=== PATIENT | male | born 1960 | race Caucasian/White ===

== ENCOUNTER 2020-02-13 11:25 | Emergency (ER) | payer OTHER, MEDICAID, SELFPAY ==
[2020-02-13] VITALS (9 sets, daily range): BP systolic 126–166; BP diastolic 58–90; PULSE 85–102; RESP 16; TEMP 36.9; O2SAT 92–94; BMI 26.7
--- NOTE | 2020-02-13 11:39 | ED_ITS ---
HPI - Alcohol <MEGHAN Stovall - Last Filed: 02/14/20 00:17> General Chief Complaint: Toxicology Problem Stated Complaint: etoh Time Seen by Provider: 02/13/20 11:26 Source: patient Mode of arrival: EMS Limitations: no limitations History of Present Illness HPI narrative: This is a 59-year-old male, smoker, who has chronic medical condition as high blood pressure and alcohol dependency presents to ED with medics with chief complain of I have alcohol poisoning and since he drinks way too much all my life. He reports he wants help to quit drinking. He drinks average 14-16 beers now and had attempted several times on his own to quit drinking alcohol but each time failed. Patient denies history of alcohol delirium tremens. Patient reports last drink was at 7:00 a.m. (5 hrs ago) and had 6 packs of beer. Patient reports has not been eating for days and lives in a local motel and states he is homeless. Patient denies recent travel or known exposure to Covid 19. This time he would like to quit for health concerns. Patient takes lisinopril 40 mg but is not sure when he had taken last time. He smokes 1 pack per day all his life and does not elaborate exact duration. He denies using illicit drugs. Patient's primary care doctor is [facility] in [place]. Patient came to [facility] to work at [employer] but quit working. Patient denies suicidal or homicidal ideation, suicidal attempts. He reports he may have been diagnosed depression. Related Data Home Medications Medication Instructions Recorded Confirmed lisinopril 40 mg PO DAILY 02/13/20 02/13/20 Previous Rx's Medication Instructions Recorded lorazepam [Ativan] See Rx Instructions .ROUTE 02/13/20 .COMPLEX 4 Days #19 tab Allergies Allergy/AdvReac Type Severity Reaction Status Date / Time No Known Drug Allergies Allergy Verified 02/13/20 12:06 Review of Systems <MEGHAN Stovall - Last Filed: 02/14/20 00:17> Review of Systems Narrative: General: Denies fever, chills, fatigue, malaise, sweats. HEENT: Denies sinus pain, ear pain, sore throat, difficulty swallowing, dizziness. Respiratory: Denies dyspnea, cough, wheezing, hemoptysis, sputum. Cardiovascular: Denies chest pain, palpitations, orthopnea, edema. Gastrointestinal: Denies nausea, vomiting, abdominal pain, diarrhea, constipation, melena. : Denies dysuria, frequency, incontinence, hematuria, urinary retention. Musculoskeletal: Denies weakness, joint pain or bony pain. Skin: Denies rash, skin lesions, or other. Neurologic: Denies weakness, headache, numbness, change in speech, confusion, seizures, incoordination. Psychiatric: see HPI 12-point review of systems is negative except for those stated above. Patient History <MEGHAN Stovall - Last Filed: 02/14/20 00:17> Surgical History (Updated 02/13/20 @ 11:47 by MEGHAN Stovall) No pertinent past surgical history (Acute) Social History Smoking Status: Current every day smoker Exam <MEGHAN Stovall - Last Filed: 02/14/20 00:17> Narrative Exam Narrative: GEN: oriented x 3, appears to be intoxicated and difficult time keeping eyes open. Head: Normal cephalic, atraumatic. No scalp or temporal tenderness, palpable mass or rash. EYES: Pupils are equal, round, and reactive to light and accommodation. Extraocular muscles are intact bilaterally. There is no subconjunctival hemorrhage, exudate and sclera non-icteric. ENT: Hearing grossly intact. Nose without bleeding, purulent discharge or deviation. Airway patent. Neck: Trachea in midline. No JVD, non-tender without lymphadenopathy. No masses or thyroid megaly. Supple, non-tender and no meningeal signs. CARDIAC: Normal regular rate and rhythm without murmurs, gallops, or rubs. No chest wall tenderness. No peripheral edema, cyanosis or pallor. Capillary refill is less than 2 seconds. RESPIRATORY: Lungs are clear to auscultate bilaterally. No cough, wheezes, rales, or rhonchi. No stridor, respiratory distress, increase work of breathing, or accessary muscle used. ABD: Abdomen soft, nontender and non-distended. No guarding or rebound tenderness to palpate. Bowel sounds are normal in all 4 quadrants. There is no palpable masses or organomegaly. EXT: Full painless ROM of all extremities with no loss of sensation, strength, effusion or edema. SKIN: Old dry scabs on forehead and nasal bridge from fall. Warm, dry, normal color for patient. No erythema, lesions or rash over visible areas. BACK: Nontender without deformity or crepitance. No flank tenderness. NEUROLOGICAL: Appears to be sleepy but able to follow verbal command and easily arousable. Oriented to place, time and person. Sensation and motor function intact bilaterally. No facial droops, dysphasia. Initial Vital Signs Initial Vital Signs: Vital Signs Pulse Rate 102 H 02/13/20 11:28 Blood Pressure 166/90 H 02/13/20 11:28 Pulse Oximetry 94 02/13/20 11:28 Psych Appearance: disheveled Mental Status: mental status grossly normal Speech and Movement: speech and movement normal Mood: dysthymic mood Affect: other (Flat) Attitude: cooperative Thought Process: normal Thought Content: normal Judgment: judgment good <Charly Michael MD - Last Filed: 02/14/20 09:48> Initial Vital Signs Initial Vital Signs: Vital Signs Pulse Rate 102 H 02/13/20 11:28 Blood Pressure 166/90 H 02/13/20 11:28 Pulse Oximetry 94 02/13/20 11:28 Scores <MEGHAN Stovall - Last Filed: 02/14/20 00:17> ABCD2 Citation: Initial CIWA 0 Course <MEGHAN Stovall - Last Filed: 02/14/20 00:17> Orders Ordered: Discontinued Medications Magnesium Sulfate 2 gm/ Folic Acid 1 mg/ Thiamine HCl 100 mg / Multivitamins 10 ml/ Sodium Chloride 1,015.2 mls @ 125 mls/hr IV NOW ONE Stop: 02/13/20 19:42 Last Infusion: 02/13/20 17:52 Dose: 0 mls/hr Documented by: Admin: 02/13/20 12:07 Dose: 125 mls/hr Documented by: CARMEN Lisinopril (Zestril) 40 mg PO NOW ONE Stop: 02/13/20 12:35 Last Admin: 02/13/20 12:58 Dose: 40 mg Documented by: CASSIE Lorazepam (Ativan) 1 mg PO NOW ONE Stop: 02/13/20 17:57 Last Admin: 02/13/20 18:15 Dose: 1 mg Documented by: CASSIE Nicotine (Nicoderm) 21 mg TOP NOW ONE Stop: 02/13/20 12:35 Last Admin: 02/13/20 12:59 Dose: 21 mg Documented by: CASSIE Nicotine (Nicoderm) 21 mg TOP NOW ONE Stop: 02/13/20 18:47 Vital Signs Vital signs: Vital Signs - 8 hr 02/13/20 18:30 Pulse Rate 92 H Blood Pressure 126/58 L Pulse Oximetry 94 <Charly Michael MD - Last Filed: 02/14/20 09:48> Orders Ordered: Discontinued Medications Magnesium Sulfate 2 gm/ Folic Acid 1 mg/ Thiamine HCl 100 mg / Multivitamins 10 ml/ Sodium Chloride 1,015.2 mls @ 125 mls/hr IV NOW ONE Stop: 02/13/20 19:42 Last Infusion: 02/13/20 17:52 Dose: 0 mls/hr Documented by: Admin: 02/13/20 12:07 Dose: 125 mls/hr Documented by: CARMEN Lisinopril (Zestril) 40 mg PO NOW ONE Stop: 02/13/20 12:35 Last Admin: 02/13/20 12:58 Dose: 40 mg Documented by: CASSIE Lorazepam (Ativan) 1 mg PO NOW ONE Stop: 02/13/20 17:57 Last Admin: 02/13/20 18:15 Dose: 1 mg Documented by: CASSIE Nicotine (Nicoderm) 21 mg TOP NOW ONE Stop: 02/13/20 12:35 Last Admin: 02/13/20 12:59 Dose: 21 mg Documented by: CASSIE Nicotine (Nicoderm) 21 mg TOP NOW ONE Stop: 02/13/20 18:47 Vital Signs Vital signs: Vital Signs - 8 hr 02/13/20 18:30 Pulse Rate 92 H Blood Pressure 126/58 L Pulse Oximetry 94 MDM - Alcohol <MEGHAN Stovall - Last Filed: 02/14/20 00:17> Differential Diagnosis Differential diagnosis: Likely alcohol intoxication and other (Alcohol dependency) Medical Records Attestation: I reviewed the patient's medical records. Lab Data Attestation: I reviewed the patient's lab results. Result diagrams: 02/13/20 11:38 02/13/20 11:38 Labs: Lab Results 02/13/20 02/13/20 02/13/20 Range/Units 11:38 11:38 11:38 WBC 9.0 (4.5-11.0) X10^3/uL RBC 4.81 (4.5-5.9) X10^6/uL Hgb 15.8 (13.5-17.5) g/dL Hct 45.5 (41-53) % MCV 94.5 (80-100) fL MCH 32.9 (26-34) PG MCHC 34.9 (30-36) % RDW 14.5 (11.6-14.8) % Plt Count 210 (150-400) X10^3/uL Neut % (Auto) 46.3 L (50-75) % Lymph % (Auto) 44.5 H (25-40) % [place] % (Auto) 7.7 (3-14) % Eos % (Auto) 0.5 L (2-4) % Baso % (Auto) 1.0 (0-2) % Neut # (Auto) 4200 (5878-8219) /uL Lymph # (Auto) 4000 (5732-8844) /uL [place] # (Auto) 700 (0-900) /uL Eos # (Auto) 0 (0-450) /uL Baso # (Auto) 100 (0-100) /uL PT 11.5 (10.1-12.7) SECONDS INR 1.0 (0.9-1.3) Sodium 143 (137-145) mmol/L Potassium 4.5 (3.4-5.1) mmol/L Chloride 106 (98-107) mmol/L Carbon Dioxide 28 (22-32) mmol/L BUN 7 L (9-20) mg/dL Creatinine 0.54 L (0.66-1.25) mg/dL Estimated GFR > 60.0 (>60) mL/min BUN/Creatinine Ratio 13.0 (6-22) Glucose 121 H (80-110) mg/dL Calcium 9.0 (8.4-10.2) mg/dL Magnesium 2.3 (1.6-2.3) mg/dL Total Bilirubin 0.5 (0.2-1.3) mg/dL Conjugated Bilirubin 0.0 (0.0-0.3) md/dL Unconjugated Bilirubin 0.4 (0.0-1.1) mg/dL AST 67 H (17-59) IU/L ALT 70 H (<50) IU/L Alkaline Phosphatase 90 (38-126) U/L Total Protein 7.8 (6.3-8.2) g/dL Albumin 4.8 (3.5-5.0) g/dL Globulin 3.0 (1.7-4.1) g/dL Albumin/Globulin Ratio 1.6 (1.0-2.8) Lipase 255 (23-300) U/L U Opiates 300ng/mL cut (Negative) Ur Oxycodone Screen (Negative) Urine Methadone Screen (Negative) Ur Barbiturates Screen (Negative) U Tricyclic Antidepress (Negative) Ur Phencyclidine Scrn (Negative) Ur Amphetamines Screen (Negative) U Methamphetamines Scrn (Negative) Ur MDMA Scrn (Ecstasy) (Negative) U Benzodiazepines Scrn (Negative) Urine Cocaine Screen (Negative) U Marijuana (THC) Screen (Negative) Ethyl Alcohol 358 H ( - 10) mg/dL COVID-19 PCR (Negative) 02/13/20 02/13/20 Range/Units 12:30 13:05 WBC (4.5-11.0) X10^3/uL RBC (4.5-5.9) X10^6/uL Hgb (13.5-17.5) g/dL Hct (41-53) % MCV (80-100) fL MCH (26-34) PG MCHC (30-36) % RDW (11.6-14.8) % Plt Count (150-400) X10^3/uL Neut % (Auto) (50-75) % Lymph % (Auto) (25-40) % Vermilion % (Auto) (3-14) % Eos % (Auto) (2-4) % Baso % (Auto) (0-2) % Neut # (Auto) (3640-6268) /uL Lymph # (Auto) (4071-1891) /uL Vermilion # (Auto) (0-900) /uL Eos # (Auto) (0-450) /uL Baso # (Auto) (0-100) /uL PT (10.1-12.7) SECONDS INR (0.9-1.3) Sodium (137-145) mmol/L Potassium (3.4-5.1) mmol/L Chloride (98-107) mmol/L Carbon Dioxide (22-32) mmol/L BUN (9-20) mg/dL Creatinine (0.66-1.25) mg/dL Estimated GFR (>60) mL/min BUN/Creatinine Ratio (6-22) Glucose (80-110) mg/dL Calcium (8.4-10.2) mg/dL Magnesium (1.6-2.3) mg/dL Total Bilirubin (0.2-1.3) mg/dL Conjugated Bilirubin (0.0-0.3) md/dL Unconjugated Bilirubin (0.0-1.1) mg/dL AST (17-59) IU/L ALT (<50) IU/L Alkaline Phosphatase (38-126) U/L Total Protein (6.3-8.2) g/dL Albumin (3.5-5.0) g/dL Globulin (1.7-4.1) g/dL Albumin/Globulin Ratio (1.0-2.8) Lipase (23-300) U/L U Opiates 300ng/mL cut Negative (Negative) Ur Oxycodone Screen Negative (Negative) Urine Methadone Screen Negative (Negative) Ur Barbiturates Screen Negative (Negative) U Tricyclic Antidepress Negative (Negative) Ur Phencyclidine Scrn Negative (Negative) Ur Amphetamines Screen Negative (Negative) U Methamphetamines Scrn Negative (Negative) Ur MDMA Scrn (Ecstasy) Negative (Negative) U Benzodiazepines Scrn Negative (Negative) Urine Cocaine Screen Negative (Negative) U Marijuana (THC) Screen Negative (Negative) Ethyl Alcohol ( - 10) mg/dL COVID-19 PCR Negative (Negative) Point of Care Testing Glucose POC 105 Urine Dip Bedside Urine Glucose Negative Bedside Urine Bilirubin - Negative Bedside Urine Ketone - Negative Urine Specific [place] 1.015 Bedside Urine Occult Blood - Negative Bedside Urine pH 6.0 Bedside Urine Protein - Negative Bedside Urine Urobilinogen - Negative Bedside Urine Nitrite - Negative Bedside Urine Leukocytes - Negative Esterase MDM Narrative Medical decision making narrative: This is a 59-year-old male who has long history of heavy alcohol use all his life presents to ED with in request for alcohol detox in the hospital treatment and help. Patient self self attempted alcohol cessation in the past which failed each time. Patient is motivated this time to quit drinking alcohol for his health. BAL initial is 358 at 1140 after he had about 6 pack of beer at 7:00 a.m.. Otherwise CBC is unremarkable. CMP is unremarkable with normal kidney function. Slightly elevated liver function test of AST and ALT of 67/70. UDS was negative. COVID-19 test was negative. Initiated CIWA test Q4 hrs with seizure precaution. Patient was provided with his routine hypertension medication lisinopril 40 mg and nicotine patch. Patient has been hydrated gentle early with banana bag. 1200-ADMINISTRATOR PESTICIDE consult was initiated and Jennifer was able to evaluate the patient at bedside. At this time it would be best patient has inpatient alcohol treatment medically to prevent alcohol DT since patient has a history of long and heavy alcohol intake. At this time, patient does not have history of DT, suicidal or homicidal ideation. 1750- CIWA 2. Patient walking around in the room and reports feeling little anxious about getting a place at a facility. (+1 for mild anxiety and +1 tremor). The patient is being discharged to [facility] detox facility with prescription of Ativan to help with withdrawal symptoms. Return precautions discussed with patient and patient is waiting for a ride. 184-The [facility] detox facility call back to inform their pharmacy is closed is unable to receive patient and requesting old patient till tomorrow morning. Discussed this with patient and the patient is willing to stay. Nocotine patch was reordered after told unable to leave ED for smoking. 1849-The patient eloped. <Charly Michael MD - Last Filed: 02/14/20 09:48> Lab Data Labs: Lab Results 02/13/20 02/13/20 02/13/20 Range/Units 11:38 11:38 11:38 WBC 9.0 (4.5-11.0) X10^3/uL RBC 4.81 (4.5-5.9) X10^6/uL Hgb 15.8 (13.5-17.5) g/dL Hct 45.5 (41-53) % MCV 94.5 (80-100) fL MCH 32.9 (26-34) PG MCHC 34.9 (30-36) % RDW 14.5 (11.6-14.8) % Plt Count 210 (150-400) X10^3/uL Neut % (Auto) 46.3 L (50-75) % Lymph % (Auto) 44.5 H (25-40) % Verm[place] % (Auto) 7.7 (3-14) % Eos % (Auto) 0.5 L (2-4) % Baso % (Auto) 1.0 (0-2) % Neut # (Auto) 4200 (1202-3517) /uL Lymph # (Auto) 4000 (5041-2645) /uL [place] # (Auto) 700 (0-900) /uL Eos # (Auto) 0 (0-450) /uL Baso # (Auto) 100 (0-100) /uL PT 11.5 (10.1-12.7) SECONDS INR 1.0 (0.9-1.3) Sodium 143 (137-145) mmol/L Potassium 4.5 (3.4-5.1) mmol/L Chloride 106 (98-107) mmol/L Carbon Dioxide 28 (22-32) mmol/L BUN 7 L (9-20) mg/dL Creatinine 0.54 L (0.66-1.25) mg/dL Estimated GFR > 60.0 (>60) mL/min BUN/Creatinine Ratio 13.0 (6-22) Glucose 121 H (80-110) mg/dL Calcium 9.0 (8.4-10.2) mg/dL Magnesium 2.3 (1.6-2.3) mg/dL Total Bilirubin 0.5 (0.2-1.3) mg/dL Conjugated Bilirubin 0.0 (0.0-0.3) md/dL Unconjugated Bilirubin 0.4 (0.0-1.1) mg/dL AST 67 H (17-59) IU/L ALT 70 H (<50) IU/L Alkaline Phosphatase 90 (38-126) U/L Total Protein 7.8 (6.3-8.2) g/dL Albumin 4.8 (3.5-5.0) g/dL Globulin 3.0 (1.7-4.1) g/dL Albumin/Globulin Ratio 1.6 (1.0-2.8) Lipase 255 (23-300) U/L U Opiates 300ng/mL cut (Negative) Ur Oxycodone Screen (Negative) Urine Methadone Screen (Negative) Ur Barbiturates Screen (Negative) U Tricyclic Antidepress (Negative) Ur Phencyclidine Scrn (Negative) Ur Amphetamines Screen (Negative) U Methamphetamines Scrn (Negative) Ur MDMA Scrn (Ecstasy) (Negative) U Benzodiazepines Scrn (Negative) Urine Cocaine Screen (Negative) U Marijuana (THC) Screen (Negative) Ethyl Alcohol 358 H ( - 10) mg/dL COVID-19 PCR (Negative) 02/13/20 02/13/20 Range/Units 12:30 13:05 WBC (4.5-11.0) X10^3/uL RBC (4.5-5.9) X10^6/uL Hgb (13.5-17.5) g/dL Hct (41-53) % MCV (80-100) fL MCH (26-34) PG MCHC (30-36) % RDW (11.6-14.8) % Plt Count (150-400) X10^3/uL Neut % (Auto) (50-75) % Lymph % (Auto) (25-40) % Vermilion % (Auto) (3-14) % Eos % (Auto) (2-4) % Baso % (Auto) (0-2) % Neut # (Auto) (3552-1831) /uL Lymph # (Auto) (1970-2487) /uL Vermilion # (Auto) (0-900) /uL Eos # (Auto) (0-450) /uL Baso # (Auto) (0-100) /uL PT (10.1-12.7) SECONDS INR (0.9-1.3) Sodium (137-145) mmol/L Potassium (3.4-5.1) mmol/L Chloride (98-107) mmol/L Carbon Dioxide (22-32) mmol/L BUN (9-20) mg/dL Creatinine (0.66-1.25) mg/dL Estimated GFR (>60) mL/min BUN/Creatinine Ratio (6-22) Glucose (80-110) mg/dL Calcium (8.4-10.2) mg/dL Magnesium (1.6-2.3) mg/dL Total Bilirubin (0.2-1.3) mg/dL Conjugated Bilirubin (0.0-0.3) md/dL Unconjugated Bilirubin (0.0-1.1) mg/dL AST (17-59) IU/L ALT (<50) IU/L Alkaline Phosphatase (38-126) U/L Total Protein (6.3-8.2) g/dL Albumin (3.5-5.0) g/dL Globulin (1.7-4.1) g/dL Albumin/Globulin Ratio (1.0-2.8) Lipase (23-300) U/L U Opiates 300ng/mL cut Negative (Negative) Ur Oxycodone Screen Negative (Negative) Urine Methadone Screen Negative (Negative) Ur Barbiturates Screen Negative (Negative) U Tricyclic Antidepress Negative (Negative) Ur Phencyclidine Scrn Negative (Negative) Ur Amphetamines Screen Negative (Negative) U Methamphetamines Scrn Negative (Negative) Ur MDMA Scrn (Ecstasy) Negative (Negative) U Benzodiazepines Scrn Negative (Negative) Urine Cocaine Screen Negative (Negative) U Marijuana (THC) Screen Negative (Negative) Ethyl Alcohol ( - 10) mg/dL COVID-19 PCR Negative (Negative) Point of Care Testing Glucose POC 105 Urine Dip Bedside Urine Glucose Negative Bedside Urine Bilirubin - Negative Bedside Urine Ketone - Negative Urine Specific [place] 1.015 Bedside Urine Occult Blood - Negative Bedside Urine pH 6.0 Bedside Urine Protein - Negative Bedside Urine Urobilinogen - Negative Bedside Urine Nitrite - Negative Bedside Urine Leukocytes - Negative Esterase Discharge Plan Departure Patient Disposition: Released, Other Clinical Impression: Alcohol abuse Alcohol dependence Qualifiers: Substance use status: with intoxication Complication of substance-induced condition: uncomplicated Qualified Code(s): F10.220 - Alcohol dependence with intoxication, uncomplicated Discharge Date/Time: 02/13/20 18:45 Instructions: DI for Alcohol Use Disorder Activity Restrictions/Additional Instructions: You have been diagnosed with [alcohol abuse and dependency.]. What to do: *Take your medications as directed. Please take Ativan as prescribed to help with the withdrawal symptoms during detox. *Follow up with your primary care provider in 2-3 days, call for an appointment. Let them know you were seen in the ED and that we asked you to be seen in follow up. *Return to ED if you have any new, worsening, or concerning symptoms, such as [chest pain, breathing difficulty, unable to tolerate fluids, fever or any acute concerns]. Prescriptions: New lorazepam [Ativan] 2 mg tablet See Rx Instructions .ROUTE .COMPLEX 4 Days Qty: 19 RF: 0 No Action lisinopril 40 mg Tablet 40 mg PO DAILY RF: 0 Referrals: [facility] [Outside]
[2020-02-13 11:48] LABS: Add Manual Diff / Slide Review NO; Basophils Absolute Auto 100 /uL (0-100); Eosinophils Absolute Auto 0 /uL (0-450); Eosinophils Percent Auto 0.5 % (2-4); Hematocrit 45.5 % (41-53); Hemoglobin 15.8 g/dL (13.5-17.5); Lymphocytes Absolute Auto 4000 /uL (1100-4500); Lymphocytes Percent Auto 44.5 % (25-40); Mean Corpuscular HGB Conc 34.9 % (30-36); Mean Corpuscular Hemoglobin 32.9 PG (26-34); Mean Corpuscular Volume 94.5 fL (80-100); Monocytes Absolute Auto 700 /uL (0-900); Monocytes Percent Auto 7.7 % (3-14); Neutrophils Absolute Auto 4200 /uL (1500-7000); Neutrophils Percent Auto 46.3 % (50-75); Platelet Count 210 X10^3/uL (150-400); Red Blood Cell Count 4.81 X10^6/uL (4.5-5.9); Red Cell Distribution Width 14.5 % (11.6-14.8)
[2020-02-13 11:54] LABS: Prothrombin Time 11.5 SECONDS (10.1-12.7)
[2020-02-13 11:59] LABS: Alanine Aminotransferase 70 IU/L (<50); Albumin 4.8 g/dL (3.5-5.0); Albumin Globulin Ratio 1.6 (1.0-2.8); Alkaline Phosphatase 90 U/L (38-126); Aspartate Aminotransferase 67 IU/L (17-59); Bilirubin Total 0.5 mg/dL (0.2-1.3); Bilirubin Unconjugated 0.4 mg/dL (0.0-1.1); Blood Urea Nitrogen 7 mg/dL (9-20); Carbon Dioxide 28 mmol/L (22-32); Chloride 106 mmol/L (98-107); Estimated Glomerular Filt Rate > 60.0 mL/min (>60); Glucose 121 mg/dL (80-110); HEMOLYSIS 26 (0-50); Lipase 255 U/L (23-300); Magnesium 2.3 mg/dL (1.6-2.3); Potassium 4.5 mmol/L (3.4-5.1); Sodium 143 mmol/L (137-145); Total Protein 7.8 g/dL (6.3-8.2)
[2020-02-13 12:07] LABS: Ethanol (ETOH) 358 mg/dL
[2020-02-13] MEDS: MAGNESIUM SULFATE 2 GM, FOLIC ACID 1 MG, THIAMINE 100 MG, MULTIVITAMIN 10 ML in SODIUM ... IV (12:07)
[2020-02-13 12:36] LABS: Ur Creatinine Normal (Normal); Ur Specific Gravity Normal (Normal); Urine pH Normal (Normal)
[2020-02-13 12:39] LABS: UR Morphine/Opiate cutoff 300 Negative (Negative); Urine Cocaine Negative (Negative); Urine Tetrahydrocannabinol Negative (Negative)
[2020-02-13 12:40] LABS: Urine Amphetamines Negative (Negative); Urine Barbiturates Negative (Negative); Urine Benzodiazepines Negative (Negative); Urine MDMA Negative (Negative); Urine Methadone Negative (Negative); Urine Methamphetamines Negative (Negative); Urine Oxycodone Negative (Negative); Urine Phencyclidine Negative (Negative); Urine Tricyclic Antidepressant Negative (Negative)
[2020-02-13] MEDS: lisinopriL 20 MG TABLET 40 MG PO (12:58)
[2020-02-13] MEDS: NICOTINE 21 MG PATCH TOP (12:59)
[2020-02-13 14:09] LABS: COVID19 -Nasal RAPID Negative (Negative)
--- NOTE | 2020-02-13 15:31 | CM.SWNOTE ---
Addendum entered by NOEL Centeno 02/15/20 07:56: Late Entry from 1600 02/13/20: Return call from [facility] stating they have a bed and willing to review but that they typically do not take judo ([place]) unless MD determines that pt not safe for least restrictive social detox (not medical detox) and needs to be inpt for medical detox and then they can accept. ANGELICA discussed with PIPE STRAIGHTENER and felt that due to pt's high alcohol use and medical needs pt would most safely detox with medical supervision. ANGELICA faxed requested clinicals to [facility] and assisted getting pt on the phone with Prov intake to complete phone screen. Pt still cooperative with care and agreeable with Medical Detox. ANGELICA updated RN, KEMAL, , and ED application chemist and clocked out due to end of shift and left below note with contact information for detox facilities for ED staff to continue coordinating d/c plan. NOEL Centeno Original Note: GAUGE MAKER Consult Patient is a 59 year old male who was admitted to [facility] ED on 02/13/20 for ETOH. Pt has [place] [facility] for insurance and his PCP is not listed. EMR was reviewed. Per MD, pt was admitted for ETOH and likely withdrawal and requesting detox. DERIK was 358 at admit. Pt not currently showing signs of tremors or seizures but on CIWA protocol and likely still intoxicated and has not needed any additional medications yet beyond his Lisinopril and nicotine patch. ANGELICA met bedside with pt in ED room 5 and pt confirms that he is starting to feel quite ill but not showing visual signs of tremors yet but having difficulty maintaining discussion due to feeling the worst I've ever felt. Pt able to confirm that he has been staying at the [facility] and his few belongings are still there and he does not own his own vehicle. Pt requesting voluntary alcohol detox and interested in CD treatment after and requests staff support with getting set up for detox. Pt denies any hx of Detox tx here in [facility] or nearby [facility] and unclear how long patient has been in the area. Pt requesting to use restroom again and so far able to ambulate independently to the bathroom. Possible need for medical detox based on pt's hx of such high amount of alcohol daily, around 16 beers a day. *ANGELICA called [facility] in [place] for medical detox ([phone]) and had to leave msg inquiring about bed availability. *SW called [facility] [phone] and they may have a bed after 1800 today and request call back around 1730 but pt has to be independent with ADL's. *SW called [facility] [phone] and had to leave msg inquiring about bed availability. *SW called [facility] [phone] and had to leave msg about bed availability. Plan: SW to hand off above facilities to ED staff to follow up with calling them again towards determining if a facility can be found for alcohol detox for the pt as end of SW shift. NOEL Centeno
--- NOTE | 2020-02-13 16:31 | PC.NURSE ---
Took a call from JESSE Paz at [facility]. Jackson stated that their facility does not accept [employer] insurance unless the patient has a comorbidity that requires hospitalization. Shamar informed.
--- NOTE | 2020-02-13 17:19 | PC.NURSE ---
Pt at nurses desk, states he is leaving. Patient has discontinued his IV. Pt signs AMA form, but returns to room to await 1730 hours RN phone call to [facility].
--- NOTE | 2020-02-13 17:33 | PC.NURSE ---
I called [facility] and the person who answered stated that they had beds available. I was directed to have the patient call and make arrangements. Rad[facility] connected the call to patient's room.
[2020-02-13] MEDS: LORazepam 0.5 MG TABLET 1 MG PO (18:15)
--- NOTE | 2020-02-13 18:46 | PC.NURSE ---
Pt walked out of department AMA. Would not return when requested. Pt is not suicidal / homicidal. Steady gait and clear speech.
== END 2020-02-13 18:45 | disposition home or self-care (01) ==
PROVIDERS: Emergency Provider Nurse Practitioner Family
DX: F10.129 Alcohol abuse with intoxication, unspecified (principal); Y90.8 Blood alcohol level of 240 mg/100 ml or more; Z11.59 Encounter for screening for other viral diseases; F32.9 Major depressive disorder, single episode, unspecified; I10 Essential (primary) hypertension; F41.9 Anxiety disorder, unspecified
CPT/HCPCS: 36415; 80053; 80076; 80305; 80320; 81003; 82962; 83690; 83735; 85025; 85610; 87635; 96360; 96361; 99284; J3475